=== PATIENT | female | born 1985 | race Caucasian/White ===

== ENCOUNTER 2020-06-18 08:28 | Emergency (ER) | payer MEDICAID, SELFPAY ==
--- NOTE | ~2020-06-18 | XR_ITS ---
EXAMINATION: XR CHEST CLINICAL INFORMATION: Cough and fever COMPARISON: Previous chest x-ray July 2019 TECHNIQUE: Frontal view of the chest was obtained. FINDINGS: No significant abnormality is noted involving the heart, lungs, mediastinum, bony thorax or soft tissues. XR/XR chest 1V IMPRESSION: Unremarkable examination.
[2020-06-18 08:37] VITALS: BP 126/77; PULSE 95; RESP 18; TEMP 37.9; O2SAT 100; BMI 25.7
--- NOTE | 2020-06-18 08:41 | ED.URI ---
HPI - URI/Sore Throat General Chief Complaint: Upper Respiratory Symptoms Stated Complaint: flu like symptoms Time Seen by Provider: 06/18/20 08:40 Source: patient Mode of arrival: ambulatory Limitations: no limitations History of Present Illness HPI Narrative: 35-year-old female presented to the emergency department for evaluation of upper respiratory symptoms. Symptoms started since yesterday as a generalized body ache, sore throat, dry coughing, fever, chills. Patient declined sick contact or recent travel. Patient has been compliant with self-quarantine and face mask. Related Data Allergies Allergy/AdvReac Type Severity Reaction Status Date / Time No Known Allergies Allergy Verified 06/18/20 08:39 Review of Systems Review of Systems: All other systems are reviewed and are negative Constitutional: Reports as per HPI and Reports no additional constitutional complaints Eyes: Reports as per HPI and Reports no additional eye complaints Reports system reviewed and no additional complaints, except as documented Cardiovascular: Reports as per HPI and Reports no additional cardiovascular complaints Respiratory: Reports as per HPI and Reports no additional respiratory complaints Gastrointestinal: Reports as per HPI and Reports no additional gastrointestinal complaints Genitourinary: Reports no additional female genitourinary complaints Musculoskeletal: Reports no additional musculoskeletal complaints Skin/Breast: Reports system reviewed and no additional complaints, except as docu Psychiatric: Reports no additional psychiatric complaints Endocrine: Reports no additional endocrine complaints Hematologic/Lymphatic: Reports no additional hematologic/lymphatic complaints Allergic/Immunologic: Reports no additional allergic/immunologic complaints Reports system reviewed and no additional complaints, except as documented and Reports Abnormal speech present [facility] Social History Social History Advance Directives: No Advance Directives Information Provided: No Physical Exam Vital Signs: Vital Signs: Last Vital Signs Temp 100.3 F 06/18/20 08:37 Pulse 95 06/18/20 08:37 Resp 18 06/18/20 08:56 BP 126/77 06/18/20 08:37 Pulse Ox 100 06/18/20 08:56 Body Mass Index 25.7 Vital signs have been reviewed as appeared to be correct. Blood pressure normal. Heart rate normal. Respiration rate normal. Temperature normal. Oxygen saturation normal. Appearance: Alert. Oriented X3. No acute distress. Head: Normal external exam. Normocephalic. Atraumatic. No Monk signs noted. No raccoon eyes noted Eyes: PERRLA. EOMI. Conjunctiva and sclera normal. Eyelids normal. ENT: TM's Normal. Pharynx normal. Uvula midline. Moist mucous membranes. No trismus noted. No drooling noted. No muffled voice noted. Neck: Normal inspection. Neck supple. FROM. No adenopathy. Thyroid Normal. No meningeal signs. No neck mass noted. CVS: Normal heart rate and rhythm. Heart sound normal. No murmurs noted. Pulses normal throughout. Respiratory: No respiratory distress. Painless inspiration. Breath sounds normal. No wheezes/rales/rhonchi noted. Chest nontender. No accessory muscle usage noted or decreased air movement noted. Abdomen: Soft and nontender. Bowel sounds normal in all 4 quadrants. No distention noted. No organomegaly noted. No visible injury noted. Back: No CVA tenderness. Full range of motion noted. Skin: Skin warm and dry. Normal skin color. Normal skin turgor. No rashes/lesions/lacerations noted. Extremities: No lower extremity edema. Extremities exhibit normal range of motion. Extremities nontender. Neuro: Oriented X 3. No motor deficit. No sensory deficit. Reflexes normal. Course Course Course Narrative: Assessment and plan. 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 Patient otherwise stable. Patient was instructed to self quarantine for 2 weeks, keep wearing a face mask, frequent handwashing, off work for 2 weeks. MDM - URI/Sore Throat Lab Data Attestation: I reviewed the patient's lab results. Labs: Lab Results 06/18/20 Range/Units 08:50 COVID-19 (ANA) Positive A (Negative) COVID-19 Clin Com See Note Imaging Data Chest x-ray: Radiologist's impression: No acute pathology. Discharge Plan Discharge Clinical Impression: COVID-19 virus infection Patient Disposition: Home, Self-Care Instructions: COVID-19 (Coronavirus Disease 2019) (ED) Referrals: [facility] [Primary Care Provider] - 2 weeks Stand Alone Forms: Work/School Release
[2020-06-18] MEDS: Acetaminophen 325 MG TABLET 650 MG PO (08:50)
[2020-06-18 08:56] VITALS: RESP 18; O2SAT 100
[2020-06-18 09:05] LABS: COVID-19 Test Positive (Negative)
[2020-06-18 10:23] VITALS: BP 98/54; PULSE 80; RESP 18; TEMP 37.3; O2SAT 99
== END 2020-06-18 10:42 | disposition home or self-care (01) ==
PROVIDERS: Emergency Provider Emergency Medicine
DX: U07.1 COVID-19 (principal); M79.10 Myalgia, unspecified site; R05 Cough; R50.9 Fever, unspecified
CPT/HCPCS: 36415; 71045; 87071; 87635; 87880; 99284; 99285

== ENCOUNTER 2020-06-26 14:40 | Outpatient (REF) | payer MEDICAID, SELFPAY ==
[2020-06-27 11:25] LABS: SARS COV2 PCR INHOUSE POSITIVE (Negative)
== END 2020-06-26 14:41 | disposition home or self-care (01) ==
LOC: HO.LAB 14:40
PROVIDERS: Visit Provider Internal Medicine
DX: Z20.822 Contact with and (suspected) exposure to COVID-19 (principal)
CPT/HCPCS: C9803; U0003

== ENCOUNTER 2020-10-27 20:56 | Emergency (ER) | payer MEDICAID, SELFPAY ==
--- NOTE | ~2020-10-27 | XR_ITS ---
EXAMINATION: XR FOOT, RIGHT CLINICAL INFORMATION: Crush injury COMPARISON: None TECHNIQUE: 3 views of the right foot. FINDINGS: The bones and soft tissues are normal. No fracture. Alignment is anatomic. Joint spaces are maintained. XR/XR foot RT 2V IMPRESSION: Normal right foot.
[2020-10-27 21:51] VITALS: BP 103/60; PULSE 74; RESP 18; TEMP 36.1; O2SAT 100; BMI 26.5
[2020-10-27] MEDS: Ibuprofen 600 MG TABLET PO (21:58)
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
[2020-10-27] MEDS: Diphth,Pertus(ACell),Tet Adult 0.5 ML SYRINGE IM (23:36)
== END 2020-10-28 00:09 | disposition home or self-care (01) ==
PROVIDERS: Emergency Provider Internal Medicine; PCP Internal Medicine
DX: S93.401A Sprain of unspecified ligament of right ankle, initial encounter (principal); S96.911A Strain of unspecified muscle and tendon at ankle and foot level, right foot, initial encounter; S70.12XA Contusion of left thigh, initial encounter; S90.811A Abrasion, right foot, initial encounter; S50.311A Abrasion of right elbow, initial encounter; V28.3XXA Person boarding or alighting a motorcycle injured in noncollision transport accident, initial encounter; Y93.9 Activity, unspecified; Y92.9 Unspecified place or not applicable; Y99.9 Unspecified external cause status
CPT/HCPCS: 73620; 90471; 90715; 99284

== ENCOUNTER 2020-12-02 14:57 | Outpatient (REF) | payer MEDICAID, SELFPAY | END 2020-12-02 14:58 | disposition home or self-care (01) | LOC: HO.LAB 14:57 | PROVIDERS: Visit Provider Internal Medicine | DX: Z20.822 Contact with and (suspected) exposure to COVID-19 (principal) | CPT/HCPCS: C9803; U0003; U0005 ==

== ENCOUNTER 2021-01-14 20:48 | Emergency (ER) | payer MEDICAID, SELFPAY ==
[2021-01-14 20:51] VITALS: BP 116/72; PULSE 77; RESP 16; TEMP 36.8; O2SAT 100; BMI 24.2
--- NOTE | 2021-01-14 22:57 | ED.SKABFB ---
HPI - Skin/Abscess/Foreign Bdy General Chief complaint: Skin/Abscess/Foreign Body Stated complaint: rash everywhere Time Seen by Provider: 01/14/21 21:32 Source: patient Mode of arrival: ambulatory History of Present Illness HPI narrative: 35-year-old female presenting to the ED c/o rash to her surgical site x1 week s/p xiao donahue in [place] on December 05. Denies complications of surgery. Reports pruritus and erythema. Denies new exposures/lotions, dressings, fever, chills, abdominal pain, nausea/vomiting, dysuria Related Data Previous Rx's Medication Instructions Recorded cetirizine 10 mg capsule (Zyrtec) 10 mg PO DAILY PRN #14 cap 01/14/21 diphenhydramine HCl 2 % topical 1 appl TOPICAL BID PRN #103 ml 01/14/21 gel (Benadryl) diphenhydramine HCl 25 mg capsule 25 mg PO Q6H PRN #14 cap 01/14/21 (Benadryl) doxycycline hyclate 100 mg tablet 100 mg PO BID 7 Days #14 tab 01/14/21 Allergies Allergy/AdvReac Type Severity Reaction Status Date / Time No Known Allergies Allergy Verified 10/27/20 21:51 Review of Systems Review of Systems: Constitutional: No Fever, No Chills, No Fatigue, No Malaise ENT/Mouth: No Ear Pain, No Nasal Congestion, No sore throat, No Rhinorrhea, No Swallowing Difficulty Eyes: No Eye Pain, No Discharge Cardiovascular: No Chest Pain, No SOB, No Dyspnea on Exertion, No Orthopnea, No Edema, No Palpitations Respiratory: No Cough, No Dyspnea Gastrointestinal: No Nausea, No Vomiting, No Diarrhea, No Constipation, No Abdominal pain Genitourinary: No irregular bleeding, No Dysuria, No Urinary Frequency, No Hematuria,No Flank Pain, No Urinary Flow Changes, No Hesitancy Musculoskeletal: No joint pain, No Myalgias, No Joint Swelling Skin: No Skin Lesions, + rash Neuro: No Weakness, No Numbness Yes all other systems are reviewed and are negative [facility] Past Medical History Attestation statement: The following information was validated with the patient. Medical History (Updated 01/15/21 @ 00:02 by Pardeep Rojas) Patient denies medical problems Social History Social History Advance Directives: No Advance Directives Information Provided: Yes Patient : No Physical Exam Vital Signs: Vital Signs: Last Vital Signs Temp 98.3 F 01/14/21 20:51 Pulse 77 01/14/21 20:51 Resp 16 01/14/21 20:51 BP 116/72 01/14/21 20:51 Pulse Ox 100 01/14/21 20:51 Body Mass Index 24.2 Const: General: cooperative, healthy appearing and no acute distress Orientation/consciousness: patient oriented x3 Limitations: no limitations HENMT: Head: Yes normal to inspection Ears: hearing grossly normal bilaterally General nose exam: Normal external nose present Face and sinus: Yes normal facial exam Eyes: General: appearance normal, both eyes and all related structures EOM: EOMs intact bilaterally Neck: Neck: Yes normal visual inspection and Yes no meningeal signs Resp: Effort & Inspection: normal respiratory effort and no respiratory distress Cardio: Rate: regular rate GI: Other: Tummy tuck surgical scar noted to lower abdomen with appropriate healing No dehiscence, no drainage. + overlying skin erythema surrounding surgical scar, no warmth, +evidence of excoriation & erythema extending to upper abdomen. No streaking. no fluctuance/induration Inspection: Yes normal to inspection Palpation (GI): Soft to palpation, nontender, no guarding and not rigid Skin: Wounds: no wounds Neuro: General: patient oriented x3 and no meningeal signs Gait exam (Neuro): Normal gait present Extrem: General: Yes normal to inspection MDM - Skin/Abscess/Foreign Bdy MDM Narrative Medical decision making narrative: 35-year-old female presenting to the ED c/o rash to her surgical site x1 week s/p tummy tuck in [place] on December 05. On exam vital signs stable, NAD, nontoxic appearing, physical exam as above. Case discussed with Dr. Young who also evaluated patient. Concern is more for allergic reaction/skin irritation/dermatitis rather than cellulitis. Low suspicion for underlying infection/abscess/intra-abdominal pathology Will DC home with doxycycline as precautionary due to recent surgery/overlying skin erythema, Benadryl, and general surgery follow-up Medical Records Attestation: I reviewed the patient's medical records. Lab Data Attestation: I reviewed the patient's lab results. Discharge Plan Discharge Clinical Impression: Dermatitis, Allergic reaction Patient Disposition: Home, Self-Care Instructions: General Allergic Reaction (ED), Dermatitis (ED) Additional Instructions: Doxycycline as antibiotic, take as prescribed for possible cellulitis to your surgical site Benadryl and topical Benadryl help with allergic reaction symptoms/itching Zyrtec will help during the day and will not make you drowsy Please follow-up with General surgery If symptoms persist or worsen,, unbearable, you develop abdominal pain, nausea/vomiting, fever or chills please return to the ED Doxiciclina leroy antibi?kevin, rakesh seg?n lo prescrito para jonathon posible celulitis en el sitio de la cirug?a. Benadryl y Benadryl t?afua ayudan con los s?ntomas de reacci?n al?rgica / picaz?n Zyrtec le ayudar? ethan el d?a y no le dinh? osiris?o. Enrike un seguimiento con Cirug?a general. Si los s?ntomas persisten o empeoran, son insoportables, presenta dolor abdominal, n?useas / v?mitos, fiebre o escalofr?os, vuelva al servicio de urgencias. Prescriptions: New doxycycline hyclate 100 mg tablet 100 mg PO BID 7 Days Qty: 14 RF: 0 Benadryl 2 % gel 1 appl topical BID PRN (Reason: skin irritation) Qty: 103 RF: 0 diphenhydramine HCl [Benadryl] 25 mg capsule 25 mg PO Q6H PRN (Reason: itching) Qty: 14 RF: 0 Zyrtec 10 mg capsule 10 mg PO DAILY PRN (Reason: allergy symptoms) Qty: 14 RF: 0 Referrals: [facility] [Primary Care Provider] - 2 days Jomar Shea MD [Physician] - 3 days Interventions: ED Discharge Assessment Last Done: 01/14/21 23:35 Discharge Date/Time: 01/14/21 23:39 Print Language: Kyrgyz
--- NOTE | 2021-01-14 23:35 | PC.NURSE ---
DR GUSMAN AT BEDSIDE TO OBSERVE SURGICAL SITE WITH BLAINE MOCK.
== END 2021-01-14 23:39 | disposition home or self-care (01) ==
PROVIDERS: Emergency Provider Internal Medicine
DX: L23.9 Allergic contact dermatitis, unspecified cause (principal); Z98.890 Other specified postprocedural states
CPT/HCPCS: 99283

== ENCOUNTER → 2021-01-26 15:29 | Outpatient (BNVA) | payer MEDICAID, SELFPAY | PROVIDERS: Visit Provider Surgery | DX: L03.311 Cellulitis of abdominal wall (principal) | CPT/HCPCS: 99202 ==

== ENCOUNTER 2024-12-25 10:29 | Outpatient (REF) | payer MEDICAID, SELFPAY ==
--- OUTSIDE RECORDS SUMMARY | 2024-12-25 09:45 | XMS_ITS | Encounter Summary ---
Author Organization [employer] Address [address] [place] [address] [address] [place] [address] Care Team Providers Care Acidity Tester Name Role Phone Bridgette Godwin MD Primary Care Provider [phone] Reason for Visit * Reason Comments Follow-up Encounter Details Date Type Department Care Team (Late st Contact Info) Description 12/25/2024 9:45 AM EDT Office Visit [facility] [address] [place], [place] [phone] Bridgette Godwin MD [address] [place], [place] [phone] Iron deficiency anemia, unspecified iron deficiency anemia [...] 10:08 AM EDT documented in this encounter Plan of Treatment Scheduled Orders Name Type Priority Associated Diagnoses Orde r Schedule CBC auto differential Lab Routine Iron deficiency anemia, unspecified iron deficiency anemia type Expected: 12/25/2024 (Approximate), Expires: 12/25/2025 Comprehensive Metabolic Panel Lab Routine Iron deficiency anemia, unspecified iron deficiency anemia type Expected: 12/25/2024 (Approximate), Expires: 12/25/2025 HIV-1/2 Antigen and Antibodies, Fourth Generation, with Reflexes Lab Routine Screening Examination For Sti Expected: 12/25/2024 (Approximate), Expires: 12/25/2025 Hepatitis C Antibody with Reflex to HCV, RNA, Quantitative, Real-Time PCR Lab Routine Screening Examination For Sti Expected: 12/25/2024, Expires: 12/25/2025 RPR (Monitor) with Reflex to Titer Lab Routine Hair loss Expected: 12/25/2024, Expires: 12/25/2025 Chlamydia/N. Gonorrhoeae RNA, TMA, Urogenitial Microbiology Routine Screening Examination For Sti Expected: 12/25/2024 (Approximate), Expires: 12/25/2025 TSH W/Reflex to FT4 Lab Routine Hair loss Expected: 12/25/2024 (Approximate), Expires: 12/25/2025 Vitamin B12/Folate, Serum Panel Lab Routine Hair loss Expected: 12/25/2024, Expires: 12/25/2025 documented as of this encounter Visit Diagnoses Diagnosis Iron deficiency anemia, unspecified iron deficiency anemia type- Primary Hair loss Unspecified alopecia Screening examination for STI Encounter for immunization documented in this encounter Care Teams Acidity Tester Relationship Specialty Start Date End Date Bridgette Godwin MD [address] [place] [phone] PCP - General Family Medicine 12/25/24 documented as of this encounter
--- OUTSIDE RECORDS SUMMARY | 2024-12-25 11:40 | XMS_ITS | Clinical Summary ---
Author Organization [employer] Address [address] [place] [address] [address] [place] [address] Care Team Providers Care Treating Plant Pumper Name Role Phone Bridgette Godwin MD Primary Care Provider [phone] Medications No known medications Active Problems No known active problems Encounters Date Type Department Care Team Description 12/25/2024 9:45 AM EDT Office Visit [address] [phone] Bridgette Godwin MD Iron deficiency anemia, unspecified iron deficiency anemia type (Primary Dx); Hair loss; Screening examination for STI; Encounter for immunization 12/25/2024 Travel 12/24/[address] [address] Bridgette Godwin MD Chart Prep 12/24/[address] [address] Bridgette Godwin MD Telephone Call 12/17/2024 Patient Outreach [address] [phone] Bridgette Godwin MD Pre-visit Planning ((Unable to reach for PVP screening, LVM) to be completed in office ) 11/01/[address] [address] Samson Gutiérrez MD Nurse Triage from Last 3 Months Immunizations Immunization Administration Dates Next Due HPV, Quadrivalent 05/20/2009,02/29/2008,08/24/19 08 Hep A / Hep B 03/03/2012,09/24/2011,07/30/2011 Hep B, adult 09/19/2014 Influenza injectable quadriv alent IIV4 with preservative 03/10/2015 Influenza, IIV3, injectable 03/08/2014 Influenza, seasonal, injecta ble, preservative free 12/25/2024 Tdap 10/27/2020,03/08/2014 Social History Tobacco Use Types Packs/Day Years Used Date Smoking Tobacco: Never Smokeless Tobacco: Never Tobacco Cessation:Counseling Given: Not Answered Comments Unknown Sex and Gender Information Value Date Recorded Sex Assigned at Female 01/25/2022 10:17 AM EDT Legal Sex Female 10:17 AM EDT Gender Identity Female 01/25/2022 10:17 AM EDT Sexual Orientation Choose not to disclose 2021 10:17 AM EDT Last Filed Vital Signs Vital Sign Reading [...] Mass Index 24.24 12/25/2024 10:08 AM EDT Plan of Treatment Health Maintenance Due Date Last Done Comments Depression Screening 1987 SDOH Screening 1987 Disability Screening 1987 Alcohol/Substance Use Screening 1999 Family Planning (PISQ) 2002 Hepatitis C Screening 2005 Pap Smear 2008 Cervical Cancer Screening 2017 HPV/Cotest 2017 COVID-19 Vaccine ( season) 2024 Tobacco Screening 12/25/2025 12/25/2024 DTaP/Tdap/Td Vaccines (3 - Td or Tdap) 10/27/2030 10/27/2020, 03/08/2014 Zoster Vaccines (1 of 2) 2037 RSV Patients and Patients Aged 60 years or older (1 - 1-dose 75+ series) 2062 HPV Vaccines Completed 05/20/2009, 06/2007, 08/24/2007 Hepatitis A Vaccines Aged Out 03/03/2012, 09/24/2011, 07/30/2011 No longer eligible based on patient's age to complete this topic Hepatitis B Vaccines Completed 09/19/2014, 03/03/2012, 09/24/2011, Additional history exists HIV Screening Completed 11/19/2020 Influenza Vaccine Completed 12/25/2024, , 03/08/2014 HIB Vaccines Aged Out No longer eligi ble based on patient's age to complete this topic IPV Vaccines Aged Out No longer eligi ble based on patient's age to complete this topic Meningococcal B Vaccine Aged Out No l onger eligible based on patient's age to complete this topic Meningococcal Vaccine Aged Out No ephraim eloy eligible based on patient's age to complete this topic Pneumococcal Vaccine: Pediatrics (0 to 5 Years) and At-Risk Patients (6 to 49) Years Aged Out No longer eligible based on patient's age to complete this topic RSV under 20 months Aged Out No longe r eligible based on patient's age to complete this topic Rotavirus Vaccines Aged Out No longer eligible based on patient's age to complete this topic Procedures Procedure Name Priority Date/Time Associated Diagnosis Comments HIV 1/2 ANTIGEN/ANTIBODY, FOURTH GENERATION W/RFL Routine 11/19/2020 4:05 PM EDT from Last 3 Months or Most Recently Relevant to Health Maintenance Results * HIV 1/2 ANTIGEN/ANTIBODY,FOURTH GENERATION W/RFL (11/19/2020 4:05 PM EDT) HIV-1/2 ANTIGEN AND ANTIBODIES, 4TH GENERATION W/ REFLEX NON-REACT PAMELA NON-REACT PAMELA [facility] Comment: HIV-1 antigen and HIV-1/HIV-2 antibodies were not detected. There is no laboratory evidence of HIV infection. PLEASE NOTE: This information has been disclosed to you from records whose confidentiality may be protected by state law. If your state requires such protection, then the state law prohibits you from making any further disclosure of the information without the specific written consent of the person to whom it pertains, or as otherwise permitted by law. A general authorization for the release of medical or other information is NOT sufficient for this purpose. For additional information please refer to http://education.MarketGid.Iotera/faq/VLV656 (This link is being provided for informational/ educational purposes only.) The performance of this assay has not been clinically validated in patients less than 2 years old. 11/19/2020 4:05 PM EDT [facility] LAB BLOOD ORDERABLES Final Resul t [facility] [address] from Last 3 Months or Most Recently Relevant to Health Maintenance Insurance [employer] [place] [address] [address] [place] [address] Care Teams Treating Plant Pumper Relationship Specialty Start Date End Date Bridgette Godwin MD [address] [place] [phone] PCP - General Family Medicine 12/25/24
--- OUTSIDE RECORDS SUMMARY | 2024-12-25 11:40 | XMS_ITS | Encounter Summary ---
Author Organization [employer] Address [address] [place] [address] [address] [place] [address] Care Team Providers Care Welfare Adviser Name Role Phone Bridgette Godwin MD Primary Care Provider [phone] Encounter Details Date Type Department Care Team (Latest Contact Info) Description 12/25/2024 Travel Social History Tobacco Use Types Packs/Day Years Used Date Smoking Tobacco: Never Smokeless Tobacco: Never Comments Unknown Sex and Gender Information Value Date Recorded Sex Assigned at Female 01/25/2022 10:17 AM EDT Legal Sex Female 10:17 AM EDT Gender Identity Female 01/25/2022 10:17 AM EDT Sexual Orientation Choose not to disclose 2021 10:17 AM EDT documented as of this encounter Plan of Treatment Not on file documented as of this encounter Visit Diagnoses Not on filedocumented in this encounter Care Teams Welfare Adviser Relationship Specialty Start Date End Date Bridgette Godwin MD [address] [place] [phone] PCP - General Family Medicine 12/25/24 documented as of this encounter
--- OUTSIDE RECORDS SUMMARY | 2024-12-25 11:40 | XMS_ITS | Encounter Summary ---
Author Organization [employer] Address [address] [place] [address] 7 [place] [address] Care Team Providers Care Manager Hematology Name Role Phone Unavailable Primary Care Provider Unavailabl e Reason for Visit * Reason Onset Date Comments Chart Prep 12/24/2024 Encounter Details Date Type Department Care Team (Late st Contact Info) Description 12/24/2024 Telephone [facility] [address] [place] [address] Bridgette Godwin MD [address] [place] [address] Chart Prep Social History Tobacco Use Types Packs/Day Years Used Date Smoking Tobacco: Never Assessed Comments Unknown Sex and Gender Information Value Date Recorded Sex Assigned at Female 01/25/2022 10:17 AM EDT Legal Sex Female 10:17 AM EDT Gender Identity Female 01/25/2022 10:17 AM EDT Sexual Orientation Choose not to disclose 2021 10:17 AM EDT documented as of this encounter Miscellaneous Notes * Telephone Encounter - Rita Huston MA - 12/24/2024 2:22 PM EDT Chart Prep Labs: not applicable Images: not applicable Referrals: not applicable Vaccines due: Covid and Flu Screenings: pap smear, LMP, and Hepatitis C Screening Overdue care gaps: SBIRT, SDOH, PHQ-9, MAR-7, and Disability screen documented in this encounter Plan of Treatment Not on file documented as of this encounter Visit Diagnoses Not on filedocumented in this encounter
--- OUTSIDE RECORDS SUMMARY | 2024-12-25 11:40 | XMS_ITS | Encounter Summary ---
Author Organization [employer] Address [address] [place] [address] 7 [place] [address] Care Team Providers Care History Department Chair Name Role Phone Unavailable Primary Care Provider Unavailabl e Reason for Visit * Reason Onset Date Comments Telephone Call 12/24/2024 Encounter Details Date Type Department Care Team (Late st Contact Info) Description 12/24/[address] [facility] MED[facility]INE [address] [place] [address] Bridgette Godwin MD [address] [place] [address] Telephone Call Social History Tobacco Use Types Packs/Day Years [...] encounter Miscellaneous Notes * Telephone Encounter - Lyndsey Madden - 12/24/2024 1:12 PM EDT Called pt to inform her [employer] insurance is inactive and should give them a call or come in to speak with our insurance case manager. Pt stated she would call them today. Pt has apt scheduled for 12/25 @9:45am. documented in this encounter Plan of Treatment Not on file documented as of this encounter Visit Diagnoses Not on filedocumented in this encounter
[2024-12-25 12:07] LABS: MANUAL DIFF FLAG NO
[2024-12-25 12:13] LABS: Hematocrit 38.1 % (37.0-47.0); Hemoglobin 13.0 g/dl (12.0-16.0); Imm Gran Abs Auto 0.03 X10*3/uL (0.00-0.03); Imm Gran Pct Auto 0.4 % (0.0-0.4); Lymphocytes Absolute Auto 1.8 X10*3/uL (1.2-4.9); Mean Corpuscular HGB Conc 34.1 g/dl (31.0-35.0); Mean Corpuscular Hemoglobin 29.7 pg (27.0-33.0); Mean Corpuscular Volume 87.0 fL (80.0-98.0); NRBC Abs Auto 0.000 X10*3/uL (0.0-0.012); NRBC Pct Auto 0.0 /100WBC (0.0-0.2); Platelet Count 252 X10*3/uL (160-400); Red Blood Count 4.38 X10*6/uL (4.20-5.50); White Blood Count 8.3 X10*3/uL (4.8-10.8)
[2024-12-25 14:33] LABS: Folate 16.3 ng/mL (> or = 4.0); Vitamin B12 711 pg/mL (200-900)
[2024-12-25 16:30] LABS: Alanine Aminotransferase 44 U/L (0-31); Albumin Level 4.9 g/dL (3.5-5.0); Alkaline Phosphatase 86 U/L (39-117); Anion Gap 11 (12-20); Aspartate Amino Transferase 36 U/L (5-31); Blood Urea Nitrogen 17 mg/dL (9-16); Calcium 9.4 mg/dL (8.4-10.2); Carbon Dioxide 27 mmol/L (22-29); Chloride 107 mmol/L (96-108); Estimated Glomerular Filt Rate > 60; Potassium 3.7 mmol/L (3.3-5.1); Sodium 141 mmol/L (135-145); Total Protein 7.4 g/dL (6.5-8.0)
[2024-12-26 05:06] LABS: HIV Num 1 0.07 S/CO (0.00-0.99); ~HepC Num1 0.09 S/CO (0.00-0.79); ~Hepatitis C Antibody Nonreactive (Nonreactive)
== END 2024-12-25 10:30 | disposition home or self-care (01) ==
LOC: HO.HHCL 10:29
PROVIDERS: PCP General Practice; Visit Provider General Practice
DX: Z01.84 Encounter for antibody response examination (principal); Z11.3 Encounter for screening for infections with a predominantly sexual mode of transmission; L65.9 Nonscarring hair loss, unspecified; D50.9 Iron deficiency anemia, unspecified; Z11.4 Encounter for screening for human immunodeficiency virus [HIV]
CPT/HCPCS: 36415; 80053; 82607; 82746; 84443; 85025; 86592; 86803; 87389

== ENCOUNTER 2024-12-27 08:59 | Outpatient (REF) | payer MEDICAID, SELFPAY ==
--- OUTSIDE RECORDS SUMMARY | 2024-12-25 09:45 | XMS_ITS | Encounter Summary ---
Author Organization [employer] Address [address] [place] [address] [address] [place] [address] Care Team Providers Care Clerk Supervisor Name Role Phone Bridgette Godwin MD Primary Care Provider [phone] Reason for Visit * Reason Comments Follow-up Encounter Details Date Type Department Care Team (Late st Contact Info) Description 12/25/2024 9:45 AM EDT Office Visit [facility] [address] [place], [place] [phone] Bridgette Godwin MD [address] [place], [place] [phone] Iron deficiency anemia, unspecified iron deficiency anemia type (Primary Dx); Hair loss; Screening examination for STI; Encounter for immunization Social History Tobacco Use Types Packs/Day Years Used Date Smoking Tobacco: Never Smokeless Tobacco: Never Tobacco Cessation:Counseling Given: Not Answered Comments Unknown Sex and Gender Information Value Date Recorded Sex Assigned at Female 01/25/2022 10:17 AM EDT Legal Sex Female 10:17 AM EDT Gender Identity Female 01/25/2022 10:17 AM EDT Sexual Orientation Choose not to disclose 2021 10:17 AM EDT documented as of this encounter Last Filed Vital Signs Vital Sign Reading Time Taken Comments Blood Pressure 102/60 12/25/2024 10:08 AM EDT Pulse 80 12/25/2024 10:08 AM EDT Temperature 36.4 C (97.5 F) 12/25/2024 10:08 AM EDT Respiratory Rate 21 12/25/2024 10:08 AM EDT Oxygen Saturation - - Inhaled Oxygen Concentration - - Weight 68.1 kg (150 lb 3.2 oz) 12/25/2024 10:08 AM EDT Height 167.6 cm (5' 6 ) 12/25/2024 10:08 AM EDT Body Mass Index 24.24 12/25/2024 10:08 AM EDT documented in this encounter Progress Notes * Bridgette Godwin MD - 12/25/2024 9:45 AM EDT SUBJECTIVE: Jose Armando Badillo is a 39 y.o. female who presents for new/transfer patient. Denies recent illness, ER visit, or hospitalization. Last visit with PCP 2-3 years ago. Does not recall name of clinic. Alopecia - Noticed hair loss about a month ago while doing hair - Describes the hair loss as a circular patch - No redness, flakiness, or discharge from the area - Reports stress around the time of hair loss - Observes tiny hairs starting to grow back in the affected area Anemia - No specific symptoms of anemia reported - Used to take daily iron, has not in several years and Obstetric History - Has been 4 times with 4 vaginal deliveries - Reports normal pregnancies - kids range in age from 15-22 Family History - No specific family medical conditions or cancers mentioned during the encounter [facility] - Expressed interest in updating Pap smears and women's health care - No current need or desire for control There are no active problems to display for this patient. Surgical History[1] Social History Social History Narrative Not on file Review of Systems Constitutional: Negative. HENT: Negative. Respiratory: Negative. Cardiovascular: Negative. Gastrointestinal: Negative. Genitourinary: Negative. Musculoskeletal: Negative. OBJECTIVE: Vitals: 12/25/24 1008 BP: 102/60 BP Location: Left arm Patient Position: Sitting BP Cuff Size: Large adult Pulse: 80 Resp: 21 Temp: 97.5 ??F (36.4 ??C) TempSrc: Oral Weight: 150 lb 3.2 oz (68.1 kg) Height: 5' 6 (1.676 m) Physical Exam Vitals reviewed. Constitutional: Appearance: Normal appearance. HENT: Head: Normocephalic and atraumatic. Cardiovascular: Rate and Rhythm: Normal rate and regular rhythm. Pulses: Normal pulses. Heart sounds: Normal heart sounds. Pulmonary: Effort: Pulmonary effort is normal. Breath sounds: Normal breath sounds. Skin: General: Skin is warm and dry. Neurological: General: No focal deficit present. Mental Status: She is alert and oriented to person, place, and time. Psychiatric: Mood and Affect: Mood normal. Behavior: Behavior normal. ASSESSMENT/PLAN Iron deficiency anemia, unspecified iron deficiency anemia type: - Iron deficiency anemia under evaluation. - Ordered basic blood work to check for anemia, as well as kidney and liver function. Hair loss: - Alopecia, possibly related to stress, infection, or autoimmune etiology. - Ordered laboratory tests to evaluate for possible causes, including infection and immune system assessment. Screening examination for STI: - Screening for sexually transmitted infections discussed. - Offered STI testing; option to complete testing now or at time of Pap smear. Problem List Items Addressed This Visit None Visit Diagnoses Iron deficiency anemia, unspecified iron deficiency anemia type - Primary Relevant Orders CBC auto differential (Completed) Comprehensive Metabolic Panel Hair loss Relevant Orders RPR (Monitor) with Reflex to Titer TSH W/Reflex to FT4 Vitamin B12/Folate, Serum Panel (Completed) Screening examination for STI Relevant Orders HIV-1/2 Antigen and Antibodies, Fourth Generation, with Reflexes Hepatitis C Antibody with Reflex to HCV, RNA, Quantitative, Real-Time PCR Chlamydia/N. Gonorrhoeae RNA, TMA, Urogenitial Encounter for immunization Relevant Orders FLU VACCINE TRIVALENT [id number] (Fluarix) 19 yrs + (Completed) Follow Up: 12 months or sooner prn Allergies[2] Current Medications[3] Thai Translation: Provided by [facility] staff member DORA An This note was drafted using Ambient (AI) technology. The patient/patient's guardian has been informed and has consented to the use of this technology: Yes [1] History reviewed. No pertinent surgical history. [2] Not on File [3] No current outpatient medications on file. documented in this encounter Plan of Treatment Pending Results Name Type Priority Associated Diagnoses Date /Time RPR (Monitor) with Reflex to Titer Lab Routine Hair loss 12/25/2024 10:45 AM EDT Scheduled Orders Name Type Priority Associated Diagnoses Orde r Schedule Chlamydia/N. Gonorrhoeae RNA, TMA, Urogenitial Microbiology Routine Screening Examination For Sti Expected: 12/25/2024 (Approximate), Expires: 12/25/2025 documented as of this encounter Procedures Procedure Name Priority Date/Time Associated Diagnosis Comments VITAMIN B12/FOLATE, SERUM PANEL Routine 12/25/2024 10:45 AM EDT Hair loss TSH W/REFLEX TO FT4 Routine 12/25/2024 1 0:45 AM EDT Hair loss CBC WITH AUTO DIFFERENTIAL Routine 12/25/2024 10:45 AM EDT Iron deficiency anemia, unspecified iron deficiency anemia type HEPATITIS C AB W/REFL TO HCV RNA, QN, PCR Routine 12/25/2024 10:45 AM EDT Screening examination for STI RPR (MONITOR) W/REFL TITER Routine 12/25/2024 10:45 AM EDT Hair loss HIV 1/2 ANTIGEN/ANTIBODY, FOURTH GENERATION W/RFL Routine 12/25/2024 10:45 AM EDT Screening examination for STI COMPREHENSIVE METABOLIC PANEL Routine 12/25/2024 10:45 AM EDT Iron deficiency anemia, unspecified iron deficiency anemia type documented in this encounter Results * Vitamin B12/Folate, Serum Panel (12/25/2024 10:45 AM EDT) Vitamin B12 711 200 - 900 pg/mL [facility] Comment:NORMAL 200-900 PG/ML INDETERMINATE 160-199 PG/ML DEFICIENT < 160 PG/ML Folate 16.3 > or = 4.0 ng/mL [facility] Comment:Reference Values:> o r = 4.0 ng/mL< 4.0 ng/mL suggests folate deficiency Methotrexate, aminopterin and folinic acid(leucovorin) are chemotherapeutic agents whose molecularstructures are similar to folate; therefore, the Architectfolate assay cannot be used for patients using these drugs. Blood Venous blood specimen / Unknown 12/25/2024 10:45 AM EDT 12/25/2024 1:32 PM EDT us Bridgette Godwin MD LAB BLOOD ORDERABLES Final Res ult Performing Organization Address [facility] Co de Phone Number [facility] [address] [place] [address] [phone] * TSH W/Reflex to FT4 (12/25/2024 10:45 AM EDT) Pathologist [facility] TSH reflex Free T4 1.78 0.32 - 4.0 uIU/mL [facility] Blood Venous blood specimen / Unknown 12/25/2024 10:45 AM EDT 12/25/2024 1:32 PM EDT Bridgette Godwin MD LAB BLOOD ORDERABLES Final Res ult Performing Organization Address [facility] Co de Phone Number [facility] [address] [place] [phone] * Hepatitis C Antibody with Reflex to HCV, RNA, Quantitative, Real-Time PCR (12/25/2024 10:45 AM EDT) [facility] Hepatitis C Antibody Nonreactive Nonreactive [facility] Comment:Antibodies to HCV no t detected; does not exclude early acuteHCV infection. Blood Venous blood specimen / Unknown 12/25/2024 10:45 AM EDT 12/25/2024 1:32 PM EDT Bridgette Godwin MD LAB BLOOD ORDERABLES Final Res ult Performing Organization Address [facility] Co de Phone Number [facility] [address] [place] [phone] * HIV-1/2 Antigen and Antibodies, Fourth Generation, with Reflexes (12/25/2024 10:45 AM EDT) Pathologist [facility] HIV AB/AG Nonreactive Nonreactive [facility] Comment:HIV-1 p24 Ag and/or HIV-1/HIV-2 Ab not detected.A test result that is nonreactive does not exclude thepossibility of exposure to or infection with HIV-1 and/orHIV-2. Nonreactive results in this assay for individualswith prior exposure to HIV-1 and/or HIV-2 may be due toantigen and antibody levels that are below the limit ofdetection of this assay.The [employer] HIV Ag/Ab Combo assay result andsupplemental assay results should be interpreted inconjunction with the patient's clinical presentation,history and other laboratory results. If the results areinconsistent with clinical evidence, additional testing issuggested to confirm the result. Blood Venous blood specimen / Unknown 12/25/2024 10:45 AM EDT 12/25/2024 1:32 PM EDT us Bridgette Godwin MD LAB BLOOD ORDERABLES Final Res ult [facility] [address] [place] [phone] [phone] * (ABNORMAL) Comprehensive Metabolic Panel (12/25/2024 10:45 AM EDT) Sodium 141 135 - 145 mmol/L [facility] Potassium 3.7 3.3 - 5.1 mmol/L [facility] Chloride 107 96 - 108 mmol/L [facility] Carbon Dioxide 27 22 - 29 mmol/L [facility] Anion Gap 11(L) 12 - 20 [facility] Urea Nitrogen (BUN) 17(H) 9 - 16 mg/dL [facility] Creatinine, Serum 0.76 0.5 - 1.4 mg/dL [facility] Estimated Glomerular Filt Rate >60 [facility] Comment:Chronic Kidney Disea se: Estimated GFR < 60 mL/min/[id number] Kidney Disease: Estimated GFR < 15 mL/min/1.73m2 Glucose 57(LL) 60 - 115 mg/dL [facility] Comment:Critical value for t est(s): GLUCOSE Results called to jewel back by: BRANDON Alejandro Person calling: [email or web address] Date:12/25/24Time:1618 Calcium 9.4 8.4 - 10.2 mg/dL [facility] Bilirubin, Total 0.3 0.0 - 1.0 mg/dL [facility] Aspartate Amino Transferase 36(H) 5 - 31 U/L [facility] Alanine Aminotransferase 44(H) 0 - 31 U/L [facility] Total Protein 7.4 6.5 - 8.0 g/dL [facility] Albumin Level 4.9 3.5 - 5.0 g/dL [facility] Alkaline Phosphatase 86 39 - 117 U/L [facility] Blood Venous blood specimen / Unknown 12/25/2024 10:45 AM EDT 12/25/2024 1:32 PM EDT us Bridgette Godwin MD LAB BLOOD ORDERABLES Final Res ult [facility] [address] [place] [phone] * CBC auto differential (12/25/2024 10:45 AM EDT) White Blood Count 8.3 4.8 - 10.8 X10*3/uL [facility] Red Blood Count 4.38 4.20 - 5.50 X10*6/uL [facility] Hemoglobin 13.0 12.0 - 16.0 g/dl [facility] Hematocrit 38.1 37.0 - 47.0 % [facility] Mean Corpuscular Volume 87.0 80.0 - 98.0 fL [facility] Mean Corpuscular Hemoglobin 29.7 27.0 - 33.0 pg [facility] Mean Corpuscular HGB Conc 34.1 31.0 - 35.0 g/dl [facility] Red Cell Distribution Width 13.2 11.0 - 16.0 % [facility] Platelet Count 252 160 - 400 X10*3/uL [facility] Mean Platelet Volume 10.2 9.4 - 12.3 fL [facility] Neutrophils Percent Auto 70.1 45 - 73 % [facility] Imm Gran Pct Auto 0.4 0.0 - 0.4 % [facility] Lymphocytes Percent Auto 21.4 20 - 40 % [facility] Monocytes Percent Auto 6.3 2 - 11 % [facility] Eosinophils Percent Auto 1.6 0 - 4 % [facility] Basophils Percent Auto 0.2 0 - 2 % [facility] NRBC Pct Auto 0.0 0.0 - 0.2 /100WBC [facility] Neutrophils Absolute Auto 5.8 2.0 - 8.3 x10*3/uL [facility] Imm Gran Abs Auto 0.03 0.00 - 0.03 X10*3/uL [facility] Lymphocytes Absolute Auto 1.8 1.2 - 4.9 X10*3/uL [facility] Monocytes Absolute Auto 0.5 0.1 - 1.2 X10*3/uL [facility] Eosinophils Absolute Auto 0.1 0.0 - 0.4 X10*3/uL [facility] Basophils Absolute Auto 0.0 0.0 - 0.2 X10*3/uL [facility] NRBC Abs Auto 0.000 0.0 - 0.012 X10*3/uL [facility] Blood Venous blood specimen / Unknown 12/25/2024 10:45 AM EDT 12/25/2024 11:59 AM EDT us Bridgette Godwin MD LAB BLOOD ORDERABLES Final Res ult Performing Organization Address City/State/[facility] Co de Phone Number [facility] [address] [place] [phone] [phone] documented in this encounter Visit Diagnoses Diagnosis Iron deficiency anemia, unspecified iron deficiency anemia type- Primary Hair loss Unspecified alopecia Screening examination for STI Encounter for immunization documented in this encounter Care Teams Clerk Supervisor Relationship Specialty Start Date End Date Bridgette Godwin MD [address] [place] [phone] PCP - General Family Medicine 12/25/24 documented as of this encounter
--- OUTSIDE RECORDS SUMMARY | 2024-12-27 09:42 | XMS_ITS | Encounter Summary ---
Author Organization [employer] Address [address] [place] [address] 7[address] [place] [address] Care Team Providers Care Plastic Molding Operator Name Role Phone Bridgette Godwin MD Primary Care Provider [phone] Encounter Details Date Type Department Care Team (Late st Contact Info) Description 12/25/2024 Orders Only [facility] MED[facility]INE [address] [place], [place] [phone] Elizabeth Andrew MD [address] [place], [place] [phone] Fasting low blood sugar (Primary Dx) Social History Tobacco Use Types Packs/Day Years Used Date Smoking Tobacco: Never Smokeless Tobacco: Never Comments Unknown Sex and Gender Information Value Date Recorded Sex Assigned at Female 01/25/2022 10:17 AM EDT Legal Sex Female 10:17 AM EDT Gender Identity Female 01/25/2022 10:17 AM EDT Sexual Orientation Choose not to disclose 2021 10:17 AM EDT documented as of this encounter Progress Notes * Elizabeth Andrew MD - 12/25/2024 4:36 PM EDT FU labs re low BS levels today. documented in this encounter Plan of Treatment Scheduled Orders Name Type Priority Associated Diagnoses Orde r Schedule Glucose, Plasma Lab Routine Fasting low blood sugar Expected: 12/25/2024 (Approximate), Expires: 12/25/2025 Hemoglobin A1c Lab Routine Fasting low blood sugar Expected: 12/25/2024 (Approximate), Expires: 12/25/2025 documented as of this encounter Visit Diagnoses Diagnosis Fasting low blood sugar- Primary Hypoglycemia, unspecified documented in this encounter Care Teams Plastic Molding Operator Relationship Specialty Start Date End Date Bridgette Godwin MD [address] [place] [address] PCP - General Family Medicine 12/25/24 documented as of this encounter
--- OUTSIDE RECORDS SUMMARY | 2024-12-27 09:42 | XMS_ITS | Encounter Summary ---
Author Organization [employer] Address [address] [place] [address] 7[address] [place] [address] Care Team Providers Care Soil Conservation Technician Name Role Phone Bridgette Godwin MD Primary Care Provider [phone] Reason for Visit * Reason Onset Date Comments Results 12/25/2024 Critical lab Glu cose 57 Encounter Details Date Type Department Care Team ([facility] st Contact Info) Description 12/25/2024 Telephone [facility]INE [address] [place] [phone] Fabian Owen RN Results (Critical lab Glucose 57) Social History Tobacco Use Types Packs/Day Years [...] encounter Miscellaneous Notes * Telephone Encounter - Fabian Owen RN - 12/25/2024 4:40 PM EDT This RN spoke with Dr. Andrew about patient critical lab result from today 12/25/24 Patient Glucose was 57. Dr. Godwin also aware. TC placed to patient [phone] regarding patient lab result from 12/25/24. This RN left an urgentmessage for the patient to Red team nurses. TC placed to patient [phone] regarding patient lab results from 12/25/24. Patient denies any c/o hypoglycemia and she going to eat dinner soon. RN advised patient to come to the [facility] lab at [facility] for additional lab work. Pt verbalized understanding to to F/U PRN. documented in this encounter Plan of Treatment Not on file documented as of this encounter Visit Diagnoses Not on filedocumented in this encounter Care Teams Soil Conservation Technician Relationship Specialty Start Date End Date Bridgette Godwin MD [address] [place] [phone] PCP - General Family Medicine 12/25/24 documented as of this encounter
--- OUTSIDE RECORDS SUMMARY | 2024-12-27 09:42 | XMS_ITS | Clinical Summary ---
Author Organization [employer] Address [address] [place] [address] 7t [place] [address] Care Team Providers Care Fire Apparatus Engineer Name Role Phone Bridgette Godwin MD Primary Care Provider [phone] Medications No known medications Active Problems No known active problems Encounters Date Type Department Care Team Description 12/25/2024 9:45 AM EDT Office Visit [address] [address] Bridgette Godwin MD Iron deficiency anemia, unspecified iron deficiency anemia type (Primary Dx); Hair loss; Screening examination for STI; Encounter for immunization 12/25/[address] [address] Fabian Owen RN Results (Critical lab Glucose 57) 12/25/[address] [address] Bridgette Godwin MD Results (Critical lab glucose 57); Error (VOID this visit) 12/25/2024 Orders Only [address] [address] Elizabeth Andrew MD Fasting low blood sugar (Primary Dx) 12/25/2024 Telephone [facility] [address] [place], [place] [phone] Bridgette Godwin MD results 12/25/2024 Travel 12/24/[address] [address] Bridgette Godwin MD Chart Prep 12/24/[address] [address] Bridgette Godwin MD Telephone Call 12/17/2024 Patient Outreach [facility] [address] [place] [address] Bridgette Godwin MD Pre-visit Planning ((Unable to reach for PVP screening, LVM) to be completed in office ) 11/01/2024 Telephone [facility] [address] [place] [address] Samson Gutiérrez MD Nurse Triage from Last [...] Use Screening 1999 Family Planning (PISQ) 2002 Pap Smear 2008 Cervical Cancer Screening 2017 HPV/Cotest 2017 COVID-19 Vaccine ( - season) 2024 Tobacco Screening 12/25/2025 12/25/2024 DTaP/Tdap/Td [...] 09/24/2011, Additional history exists HIV Screening Completed 12/25/2024, 11/19/2020 Hepatitis C Screening Completed 12/25/2024 Influenza Vaccine Completed 12/25/2024, , 03/08/2014 HIB [...] 12/25/2024 1 0:45 AM EDT Hair loss RPR (MONITOR) W/REFL TITER Routine 12/25/2024 10:45 AM EDT Hair loss HEPATITIS C AB W/REFL TO HCV RNA, QN, PCR Routine 12/25/2024 10:45 AM EDT Screening examination for STI HIV 1/2 ANTIGEN/ANTIBODY, FOURTH GENERATION W/RFL Routine 12/25/2024 10:45 AM EDT Screening examination for STI COMPREHENSIVE METABOLIC PANEL Routine 12/25/2024 10:45 AM EDT Iron deficiency anemia, unspecified iron deficiency anemia type CBC WITH AUTO DIFFERENTIAL Routine 12/25/2024 10:45 AM EDT Iron deficiency anemia, unspecified iron deficiency anemia type from Last 3 Months Results * Vitamin B12/Folate, Serum Panel (12/25/2024 10:45 AM EDT) Vitamin B12 711 200 - 900 pg/mL [facility] Comment:NORMAL 200-900 PG/ML INDETERMINATE 160-199 PG/ML DEFICIENT < 160 PG/ML Folate 16.3 > or = 4.0 ng/mL [facility] Comment:Reference Values:> o r = [...] MD LAB BLOOD ORDERABLES Final Res ult [facility] [address] [place], [place] [phone] * TSH W/Reflex to FT4 (12/25/2024 10:45 AM EDT) Pathologist [facility] TSH reflex Free T4 1.78 0.32 - 4.0 uIU/mL [facility] Blood Venous blood specimen / Unknown 12/25/2024 10:45 AM EDT 12/25/2024 1:32 PM EDT us Bridgette Godwin MD LAB BLOOD ORDERABLES Final Res ult [facility] [address] [place] [address] [phone] * CBC auto differential (12/25/2024 10:45 AM EDT) [facility] White Blood Count 8.3 4.8 - 10.8 X10*3/uL [facility] Red Blood Count 4.38 4.20 - 5.50 X10*6/uL [facility] Hemoglobin 13.0 12.0 - 16.0 g/dl [facility] Hematocrit 38.1 37.0 - 47.0 % [facility] Mean Corpuscular Volume 87.0 80.0 - 98.0 fL [facility] Mean Corpuscular Hemoglobin 29.7 27.0 - 33.0 pg [facility] Mean Corpuscular HGB Conc 34.1 31.0 - 35.0 g/dl [facility] Red Cell Distribution Width 13.2 11.0 - 16.0 % [facility] Platelet Count 252 160 - 400 X10*3/uL [facility] Mean Platelet Volume 10.2 9.4 - 12.3 fL [facility] Neutrophils Percent Auto 70.1 45 - 73 % [facility] Imm Gran Pct Auto 0.4 0.0 - 0.4 % [facility] Lymphocytes Percent Auto 21.4 20 - 40 % [facility] Monocytes Percent Auto 6.3 2 - 11 % [facility] Eosinophils Percent Auto 1.6 0 - 4 % [facility] Basophils Percent Auto 0.2 0 - 2 % [facility] NRBC Pct Auto 0.0 0.0 - 0.2 /100WBC [facility] Neutrophils Absolute Auto 5.8 2.0 - 8.3 x10*3/uL [facility] Imm Gran Abs Auto 0.03 0.00 - 0.03 X10*3/uL [facility] Lymphocytes Absolute Auto 1.8 1.2 - 4.9 X10*3/uL [facility] Monocytes Absolute Auto 0.5 0.1 - 1.2 X10*3/uL [facility] Eosinophils Absolute Auto 0.1 0.0 - 0.4 X10*3/uL [facility] Basophils Absolute Auto 0.0 0.0 - 0.2 X10*3/uL [facility] NRBC Abs Auto 0.000 0.0 - 0.012 X10*3/uL [facility] Blood Venous blood specimen / Unknown 12/25/2024 10:45 AM EDT 12/25/2024 11:59 AM EDT Bridgette Godwin MD LAB BLOOD ORDERABLES Final Res ult Performing Organization Address [facility]/ZIP Co de Phone Number [facility] [address] [place] [phone] * Hepatitis C Antibody with Reflex to HCV, RNA, Quantitative, Real-Time PCR (12/25/2024 10:45 AM EDT) Hepatitis C Antibody Nonreactive Nonreactive [facility] Comment:Antibodies to HCV no t detected; does not exclude early acuteHCV infection. Blood Venous blood specimen / Unknown 12/25/2024 10:45 AM EDT 12/25/2024 1:32 PM EDT Bridgette Godwin MD LAB BLOOD ORDERABLES Final Res ult Performing Organization Address City/[facility]/ZIP Co de Phone Number [facility] [address] [place] [phone] * HIV-1/2 Antigen and Antibodies, Fourth Generation, with Reflexes (12/25/2024 10:45 AM EDT) HIV AB/AG Nonreactive Nonreactive [facility] Comment:HIV-1 p24 Ag and/or HIV-1/HIV-2 Ab not detected.A test result that is nonreactive does not exclude thepossibility of exposure to or infection with HIV-1 and/orHIV-2. Nonreactive results in this assay for individualswith prior exposure to HIV-1 and/or HIV-2 may be due toantigen and antibody levels that are below the limit ofdetection of this assay.The Vigiglobe HIV Ag/Ab Combo assay result andsupplemental assay results should be interpreted inconjunction with the patient's clinical presentation,history and other laboratory results. If the results areinconsistent with clinical evidence, additional testing issuggested to confirm the result. Blood Venous blood specimen / Unknown 12/25/2024 10:45 AM EDT 12/25/2024 1:32 PM EDT us Bridgette Godwin MD LAB BLOOD ORDERABLES Final Res ult [facility] [address] [place] [phone] * (ABNORMAL) Comprehensive Metabolic Panel (12/25/2024 10:45 AM EDT) Pathologist [facility] Sodium 141 135 - 145 mmol/L [facility] Potassium 3.7 3.3 - 5.1 mmol/L [facility] Chloride 107 96 - 108 mmol/L [facility] Carbon Dioxide 27 22 - 29 mmol/L [facility] Anion Gap 11(L) 12 - 20 [facility] Urea Nitrogen (BUN) 17(H) 9 - 16 mg/dL [facility] Creatinine, Serum 0.76 0.5 - 1.4 mg/dL [facility] Estimated Glomerular Filt Rate >60 [facility] Comment:Chronic Kidney Disea se: Estimated GFR < 60 mL/min/[id number] Kidney Disease: Estimated GFR < 15 mL/min/1.73m2 Glucose 57(LL) 60 - 115 mg/dL [facility] Comment:Critical value for t est(s): GLUCOSE Results called to jewel back by: BRANDON Alejandro Person calling: [id number] Date:12/25/24Time:1618 Calcium 9.4 8.4 - 10.2 mg/dL [facility] Bilirubin, Total 0.3 0.0 - 1.0 mg/dL [facility] Aspartate Amino Transferase 36(H) 5 - 31 U/L [facility] Alanine Aminotransferase 44(H) 0 - 31 U/L [facility] Total Protein 7.4 6.5 - 8.0 g/dL [facility] Albumin Level 4.9 3.5 - 5.0 g/dL [facility] Alkaline Phosphatase 86 39 - 117 U/L [facility] Blood Venous blood specimen / Unknown 12/25/2024 10:45 AM EDT 12/25/2024 1:32 PM EDT us Bridegtte Godwin MD LAB BLOOD ORDERABLES Final Res ult [facility] [address] [place] [address] [phone] from Last 3 Months Insurance [address] [place] [id number] [place] [employer] Care Teams Fire Apparatus Engineer Relationship Specialty Start Date End Date Bridgette Godwin MD [address] [place] [phone] PCP - General Family Medicine 12/25/24
--- OUTSIDE RECORDS SUMMARY | 2024-12-27 09:42 | XMS_ITS | Encounter Summary ---
Author Organization [employer] Address [address] [place] [address] [address] [place] [address] Care Team Providers Care Quality Improvement Engineer Name Role Phone Unavailable Primary Care Provider Unavailabl e Reason for Visit * Reason Onset Date Comments Chart Prep 12/24/2024 Encounter Details Date Type Department Care Team (Late st Contact Info) Description 12/24/2024 Telephone [facility]ICINE [address] [place] [address] Bridgette Godwin MD [address] [place] [address] Chart Prep Social History Tobacco Use Types [...]
--- OUTSIDE RECORDS SUMMARY | 2024-12-27 09:42 | XMS_ITS | Encounter Summary ---
Author Organization [employer] Address [address] [place] [address] 7t [place] [address] Care Team Providers Care Cast Iron Drain Pipe Layer Name Role Phone Bridgette Godwin MD Primary Care Provider [phone] Reason for Visit * Reason Onset Date Comments Results 12/25/2024 Critical lab glu cose 57 Error (VOID this visit) 12/25/2024 Encounter Details Date Type Department Care Team ([facility] st Contact Info) Description 12/25/[address] [facility]INE [address] [place], [place] [phone] Bridgette Godwin MD [address] [place], [place] [phone] Results (Critical lab glucose 57); Error (VOID this visit) Social History Tobacco Use Types Packs/Day Years [...] on filedocumented in this encounter Care Teams Cast Iron Drain Pipe Layer Relationship Specialty Start Date End Date Bridgette Godwin MD [address] [place], [place] [phone] PCP - General Family Medicine 12/25/24 documented as of this encounter
--- OUTSIDE RECORDS SUMMARY | 2024-12-27 09:42 | XMS_ITS | Encounter Summary ---
Author Organization [employer] Address [address] [place] [address] 7t [place] [address] Care Team Providers Care Signing Teacher Name Role Phone Bridgette Godwin MD Primary Care Provider [phone] Encounter Details Date Type Department Care Team [...] on filedocumented in this encounter Care Teams Signing Teacher Relationship Specialty Start Date End Date Bridgette Godwin MD [address] [place] [phone] PCP - General Family Medicine 12/25/24 documented as of this encounter
--- OUTSIDE RECORDS SUMMARY | 2024-12-27 09:42 | XMS_ITS | Encounter Summary ---
Author Organization [employer] Address [address] [place] [address] 7 [place] [address] Care Team Providers Care Technical Specialist Cytology Name Role Phone Unavailable Primary Care Provider Unavailabl e Reason for Visit * Reason Onset Date Comments Telephone Call 12/24/2024 Encounter Details Date Type Department Care Team (Late st Contact Info) Description 12/24/[address] [facility] [address] [place] [address] Bridgette Godwin MD [address] [place] [address] Telephone Call Social History Tobacco Use Types [...] come in to speak with our insurance advisor. Pt stated she would call them today. Pt has apt scheduled for 12/25 @9:45am. documented in this encounter Plan of Treatment Not on file documented as of this encounter Visit Diagnoses Not on filedocumented in this encounter
--- OUTSIDE RECORDS SUMMARY | 2024-12-27 09:42 | XMS_ITS | Encounter Summary ---
Author Organization [employer] Address [address] [place] [address] 7[address] [place] [address] Care Team Providers Care Purchasing Intern Name Role Phone Bridgette Godwin MD Primary Care Provider [phone] Reason for Visit * Reason Onset Date Comments results 12/25/2024 Encounter Details Date Type Department Care Team ([facility] st Contact Info) Description 12/25/2024 Telephone [facility] [address] [place], [place] [phone] Bridgette Godwin MD [address] [place] [address] results Social History Tobacco Use Types Packs/Day Years [...] encounter Miscellaneous Notes * Telephone Encounter - Ankita Peña RN - 12/25/2024 4:32 PM EDT FYI- TC received from [facility] lab reporting blood glucose 57. documented in this encounter Plan of Treatment Not on file documented as of this encounter Visit Diagnoses Not on filedocumented in this encounter Care Teams Purchasing Intern Relationship Specialty Start Date End Date Bridgette Godwin MD [address] [place] [address] PCP - General Family Medicine 12/25/24 documented as of this encounter
== END 2024-12-27 09:00 | disposition home or self-care (01) ==
LOC: HO.HHCL 08:59
PROVIDERS: PCP Internal Medicine; Visit Provider Internal Medicine
DX: E16.1 Other hypoglycemia (principal)
CPT/HCPCS: 36415; 83036